=== PATIENT | female | born 1960 | race Caucasian/White ===

== ENCOUNTER 2018-04-11 18:34 | Emergency (ER) | payer OTHER, SELFPAY ==
[2018-04-11] MEDS ORDERED: Bacitracin Zinc 1 Packet ONE (19:04)
[2018-04-11] MEDS ORDERED: Adacel (T-DAP) 0.5 ML VIAL ONE (19:04)
== END 2018-04-11 19:32 | disposition home or self-care (01) ==
LOC: ERS 18:34
DX: S61.217A Laceration without foreign body of left little finger without damage to nail, initial encounter (principal); Z23 Encounter for immunization; W25.XXXA Contact with sharp glass, initial encounter
CPT/HCPCS: 12001; 90471; 90715

== ENCOUNTER 2018-04-15 17:59 | Emergency (ER) | payer SELFPAY | END 2018-04-15 18:14 | disposition left against medical advice (07) | LOC: ERS 17:59 | DX: Z53.21 Procedure and treatment not carried out due to patient leaving prior to being seen by health care provider (principal) ==

== ENCOUNTER 2024-05-20 14:49 | Outpatient (CLI) | payer BC | END 2024-05-20 14:50 | disposition home or self-care (01) | LOC: BICMAMMO 14:49 | PROVIDERS: ATTEND Family Medicine | DX: Z12.31 Encounter for screening mammogram for malignant neoplasm of breast (principal); Z13.820 Encounter for screening for osteoporosis; M81.0 Age-related osteoporosis without current pathological fracture; N64.89 Other specified disorders of breast; R92.333 Mammographic heterogeneous density, bilateral breasts; M85.852 Other specified disorders of bone density and structure, left thigh | CPT/HCPCS: 77063; 77067; 77080 ==

== ENCOUNTER 2024-05-27 15:05 | Outpatient (CLI) | payer BC | END 2024-05-27 15:06 | disposition home or self-care (01) | LOC: BICMAMMO 15:05 | PROVIDERS: ATTEND Family Medicine | DX: N64.89 Other specified disorders of breast (principal) | CPT/HCPCS: G0279 ==

== ENCOUNTER 2024-09-15 15:54 | Outpatient (CLI) | payer BC | END 2024-09-15 15:55 | disposition home or self-care (01) | LOC: BICRAD 15:54 | PROVIDERS: ATTEND Family Medicine | DX: M79.7 Fibromyalgia (principal); E46 Unspecified protein-calorie malnutrition; M41.9 Scoliosis, unspecified; M47.812 Spondylosis without myelopathy or radiculopathy, cervical region; J84.9 Interstitial pulmonary disease, unspecified | CPT/HCPCS: 71046; 72072; 72100; 72170 ==